=== PATIENT | female | born 2000 | race Caucasian/White ===

== ENCOUNTER 2020-09-27 01:49 | Emergency (ER) | payer BC ==
[~2020-09-27] VITALS: Ht 162.6 cm; Wt 59.0 kg
--- NOTE | 2020-09-27 01:57 | NUR ---
PATIENT CAME TO ER BED [address] FROM A HOUSE "DEMOCRAT UP IN THE [place]" C/O ETOH. PATIENT IS NOT RESPONSIVE TO VERBAL COMMANDS, BUT IS RESPONSIVE TO PAINFUL STIMULI. PATIENT IS BREATHING EVENLY AND UNLABORED ON ROOM AIR. PATIENT IS CONNECTED TO THE MONITOR. WILL CONTINUE TO MONITOR THE PATIENT CLOSELY.
[2020-09-27] MEDS ORDERED: IV NS 0.9% 1,000 ML BAG IV ONE (02:00)
[2020-09-27] MEDS ORDERED: ONDANSETRON HCL/PF 4 MG/2 ML VIAL IVP ONE (02:00)
[2020-09-27] MEDS ORDERED: ONDANSETRON HCL/PF 4 MG/2 ML VIAL ONE (02:01)
--- NOTE | 2020-09-27 02:10 | NUR ---
BLOOD COLLECTED AND SENT TO THE LAB.
--- NOTE | 2020-09-27 02:31 | NUR ---
XRAY AT BEDSIDE.
[2020-09-27 02:44] LABS: CALCIUM, SERUM 8.4 mg/dL (8.5-10.1); CARBON DIOXIDE 24 mmol/L (21-32); CHLORIDE 102 mmol/L (98-107); CREATININE 0.7 mg/dL (0.6-1.3); GLUCOSE 114 mg/dL (74-106); POTASSIUM 3.2 mmol/L (3.5-5.1); SODIUM SERUM 139 mmol/L (136-145); UREA NITROGEN, BLOOD 12 mg/dL (7-18)
[2020-09-27 02:54] LABS: BASOPHILS # (AUTO) 0.1 /CMM (0.0-0.2); BASOPHILS % (AUTO) 0.5 % (0.0-2.0); EOSINOPHILS % (AUTO) 0.1 % (0.0-6.0); HEMATOCRIT 38 % (33-45); HEMOGLOBIN 12.9 g/dL (11.5-14.8); LYMPHOCYTES % (AUTO) 8.8 % (20.0-44.0); MEAN CORPUSCULAR HGB CONC 34 g/dl (31.0-36.0); MEAN CORPUSCULAR VOLUME 97 fL (82-100); MONOCYTES # (AUTO) 0.6 /CMM (0.1-1.30); NEUTROPHILS # (AUTO) 10.1 /CMM (1.8-8.9); NEUTROPHILS % (AUTO) 85.6 % (43.0-81.0); PLATELET COUNT (AUTO) 244 /CMM (150-450); RED BLOOD CELL COUNT(AUTO) 3.91 MIL/uL (4.0-5.2); WHITE BLOOD COUNT (AUTO) 11.7 K/uL (4.3-11.0)
[2020-09-27 02:58] LABS: ALANINE AMINOTRANSFERASE 12 U/L (12-78); ALBUMIN 4.4 g/dL (3.4-5.0); ALCOHOL, BLOOD 249 mg/dL (0-0); ALKALINE PHOSPHATASE 72 U/L (46-116); ASPARTATE AMINOTRANSFERASE 22 U/L (15-37); BILIRUBIN,DIRECT 0.1 mg/dL (0.0-0.2); BILIRUBIN,TOTAL 0.2 mg/dL (0.2-1.0); TOTAL PROTEIN, SERUM 7.9 g/dL (6.4-8.2)
[2020-09-27 02:59] LABS: ACETAMINOPHEN 0 ug/ml (10-30)
--- NOTE | 2020-09-27 04:01 | NUR ---
PATIENT IS AWAKE. ALERT AND ORIENTED x4. PASSED TRIAL OF AMBULATION. MD NOTIFIED. MD AT BEDSIDE. MD ORDERED FOR TROPONIN REDRAW.
[2020-09-27] MEDS ORDERED: POTASSIUM CHLORIDE 20 MEQ TAB.PRT.SR PO ONE (05:30)
--- NOTE | 2020-09-27 05:53 | NUR ---
Patient discharged to home in stable condition. Written and verbal after care instructions given. Patient verbalizes understanding of instruction. IV removed. Catheter intact and site benign. Pressure and 4x4 applied to site. No bleeding noted.
[2020-09-27 06:15] VITALS: BP 101/65
== END 2020-09-27 05:55 | disposition home or self-care (01) ==
LOC: ER 01:51
DX: F10.129 Alcohol abuse with intoxication, unspecified (principal); R11.2 Nausea with vomiting, unspecified; E87.6 Hypokalemia; Y90.8 Blood alcohol level of 240 mg/100 ml or more
CPT/HCPCS: 36415; 71045; 80048; 80076; 80143; 80320; 84484 ×2; 84702; 85025; 93005; 96361; 96374; 99285; J2405; J7030; G0480